=== PATIENT | male | born 1950 | race Caucasian/White ===

== ENCOUNTER 2017-01-04 11:41 | Observation (INO) | payer MEDICARE ==
[2017-01-04] VITALS (7 sets, daily range): BP systolic 128–194; BP diastolic 68–92; PULSE 59–69; RESP 18–20; TEMP 96.6–98.2; O2SAT 95–100
[~2017-01-04] VITALS: Ht 177.8 cm; Wt 121.7 kg
[~2017-01-04 11:41] MED LIST: ASPI81 PO; ATEN50 PO; CLOP75 PO; GABA300C3 PO; HYDR10SO PO; IBUP400T20 PO; ISOS60 PO; MAGN250T13 PO; NEUR300C PO; PRAV80 PO; PRED20 PO; PROT40TA PO; VITA100T15 PO
[2017-01-04] MEDS ORDERED: ASPIRIN 325 MG TAB PO ONE (12:15)
[2017-01-04] MEDS ORDERED: SODIUM CHLORIDE 0.9% FLUSH 10 ML FLUSH IVF PRN (12:15)
[2017-01-04] MEDS ORDERED: NITROGLYCERIN 0.4 MG SL 25 TABS/BTL SL ONE (12:15)
[2017-01-04 12:25] LABS: AUTOMATED NEUTROPHIL # 4.9 TH/MM3 (1.8-7.7); BASOPHIL % 0.6 % (0.0-2.0); EOSINOPHIL # 0.2 TH/MM3 (0-0.4); EOSINOPHIL % 3.2 % (0.0-4.0); HEMATOCRIT 42.5 % (39.0-51.0); HEMO FLAGS DIFF FINAL; LYMPHOCYTE # 1.4 TH/MM3 (1.0-4.8); MEAN CELL VOLUME 91.9 FL (80.0-100.0); MEAN CORPUSCULAR HEMOGLOBIN 31.6 PG (27.0-34.0); MEAN CORPUSCULAR HGB CONC 34.3 % (32.0-36.0); MONO % 8.3 % (0.0-8.0); NEUT % 67.9 % (16.0-70.0); PLATELET COUNT 214 TH/MM3 (150-450); RED BLOOD COUNT 4.63 MIL/MM3 (4.50-5.90); RED CELL DISTRIBUTION WIDTH 13.9 % (11.6-17.2); WHITE BLOOD COUNT 7.2 TH/MM3 (4.0-11.0)
[2017-01-04 12:35] LABS: APTT (PATIENT) 25.8 SEC (24.3-30.1); INTERNATIONAL NORMALIZED RATIO 0.9 RATIO; PROTHROMBIN TIME - PATIENT 10.1 SEC (9.8-11.6)
[2017-01-04 12:44] LABS: ANION GAP 5 MEQ/L (5-15); BICARBONATE 30.6 MEQ/L (21.0-32.0); BLOOD UREA NITROGEN 12 MG/DL (7-18); CHLORIDE 105 MEQ/L (98-107); GLOMERULAR FILTRATION RATE 93 ML/MIN (>89); MAGNESIUM 2.3 MG/DL (1.5-2.5); POTASSIUM 4.6 MEQ/L (3.5-5.1); SODIUM (NA) 141 MEQ/L (136-145)
--- NOTE | 2017-01-04 12:48 | PD ---
HPI Chief Complaint: Chest Pain Time Seen by Provider: 12:44 Travel History International Travel<30 days: No Contact w/Intl Traveler<30days: No Traveled to known affect area: No History of Present Illness HPI 66-year-old male that presents to the ED for evaluation of chest pain. Patient states that she's had chest pain on and off for the past 2-3 days. Per patient he has a history of angina as well as coronary artery disease having had a heart catheter by Dr. starkey just a year ago. Per patient she's had 4 stents in his life. Per patient the pain got worse yesterday and is progressively getting worse. Per patient nitroglycerin relieves it but he states that any movement of any kind makes the pain worse. He does have a history of high cholesterol and high blood pressure and all history of smoking. He takes aspirin. Per patient he was recently found to have a cyst that is infected on his back and he was given a get surgery for it and he stopped taking his Plavix for about a week. Per patient she's been taking his Plavix since Sunday with no issues. Patient states that he called Dr. starkey his radiology transporter recommended that he comes here. He denies any recent travel. No history of blood clots. No fevers chills or sweats. Pain comes and goes. Pain feels like a pressure on his left side and radiates to the left shoulder. No headache. Patient has been using nitroglycerin with relief but doesn't completely get rid of it. Pain per patient was 7 out of 10 when it gets bad right now is 2 out of 10. Patient is shortness of breath with the symptoms and diaphoretic. Patient did took an aspirin today. PFSH Past Medical History Arthritis: Yes Asthma: No Autoimmune Disease: No Blood Disorders: No Anxiety: No Depression: No Heart Rhythm Problems: No Cancer: No Cardiac Catheterization: Yes (X 17) Cardiovascular Problems: Yes (CAD/STENTS) High Cholesterol: Yes Chemotherapy: No Chest Pain: Yes Congestive Heart Failure: No COPD: Yes Cerebrovascular Accident: Yes Coronary Artery Disease: Yes Diabetes: No Diminished Hearing: No Endocrine: No GERD: Yes Glaucoma: No Genitourinary: No Headaches: No Hepatitis: No Hiatal Hernia: Yes Hypertension: Yes Immune Disorder: No Implanted Vascular Access Dvce: Yes Kidney Stones: No Musculoskeletal: No Neurologic: No Psychiatric: No Reproductive: No Respiratory: Yes (COPD) Migraines: No Myocardial Infarction: Yes (N-STEMI 1997) Radiation Therapy: No Renal Failure: No Seizures: No Sickle Cell Disease: No Sleep Apnea: No Thyroid Disease: No Ulcer: No Past Surgical History Abdominal Surgery: No AICD: No Body Medical Devices: 3 CORONARY STENTS; PLATE SCREWS NECK: 2-5 VERTBRA LUMBAR RODS:PIN LEFT SH Cardiac Surgery: Yes Coronary Artery Bypass Graft: No Coronary Stent: Yes (X 3 1997) Ear Surgery: No Endocrine Surgery: No Eye Surgery: No Genitourinary Surgery: No Gynecologic Surgery: No Joint Replacement: No Neurologic Surgery: Yes (LUMBAR & CERVICAL FUSIONS) Oral Surgery: Yes (T & A) Pacemaker: No Thoracic Surgery: Yes Family History Family Myocardial Infarction: Yes (father) Social History Alcohol Use: No Tobacco Use: No Substance Use: No Allergies-Medications (Allergen,Severity, Reaction): Coded Allergies: Contrast Media (Verified Allergy, Severe, Hives, 01/04/17) Gemfibrozil (Verified Allergy, Severe, 01/04/17) Simvastatin (Verified Allergy, Severe, 01/04/17) Uncoded Allergies: CRESTOR (Adverse Reaction, Severe, JOINT ACHE, 09/05/11) Reported Meds & Prescriptions Reported Meds & Active Scripts Active Reported Keflex (Cephalexin) 500 Mg Cap 500 Mg PO Q6H Nitrostat SL (Nitroglycerin) 0.4 Mg Subl 0.4 Mg SL DIRECTED PRN 1 tablet under the tongue as needed for chest pain. Repeat every 5 minutes for a total of 3 DOSES or call 911 if NO relief. Aspirin Adult Low Strength (Aspirin) 81 Mg Tabdr 81 Mg PO DAILY Advil (Ibuprofen) 200 Mg Cap 200 Mg PO BID Cymbalta DR (Duloxetine HCl) 30 Mg Capdr 30 Mg PO DAILY Lortab (Hydrocodone-Acetaminophen) 10-325 Mg Tab 1 Tab PO Q4-6H PRN Plavix (Clopidogrel Bisulfate) 75 Mg Tab 75 Mg PO DAILY Tenormin (Atenolol) 50 Mg Tab 50 Mg PO DAILY Isosorbide Mononitrate ER (Isosorbide Mononitrate) 30 Mg Mega 30 Mg PO DAILY Protonix (Pantoprazole Sodium) 40 Mg Tab 40 Mg PO DAILY Pravastatin 80 Mg Tab 80 Mg PO DAILY Neurontin (Gabapentin) 300 Mg Cap 300 Mg PO QID Review of Systems Except as stated in HPI: all other systems reviewed are Neg Physical Exam Narrative GENERAL: SKIN: Warm and dry. HEAD: Atraumatic. Normocephalic. EYES: Pupils equal and round. No scleral icterus. No injection or drainage. ENT: No nasal bleeding or discharge. Mucous membranes pink and moist. Tongue is midline. No uvula deviation. NECK: Trachea midline. No JVD. CARDIOVASCULAR: Regular rate and rhythm. No murmurs, S3, S4. Chest pain is not reproducible with touch. RESPIRATORY: No accessory muscle use. Clear to auscultation. Breath sounds equal bilaterally. GASTROINTESTINAL: Abdomen soft, non-tender, nondistended. Hepatic and splenic margins not palpable. MUSCULOSKELETAL: Extremities without clubbing, cyanosis, or edema. No obvious deformities. Full range of motion of the upper and lower extremities bilaterally. 2+ pulses bilaterally. NEUROLOGICAL: Awake and alert. No obvious cranial nerve deficits. Motor grossly within normal limits. Five out of 5 muscle strength in the arms and legs. Normal speech. PSYCHIATRIC: Appropriate mood and affect; insight and judgment normal. Data Data Last Documented VS Vital Signs Date Time Temp Pulse Resp B/P Pulse Ox O2 Delivery O2 Flow Rate FiO2 01/04/17 12:24 66 20 128/68 97 01/04/17 12:08 Nasal Cannula 2 01/04/17 11:42 98.2 Orders Electrocardiogram (01/04/17 ) Electrocardiogram (01/04/17 12:06) Basic Metabolic Panel (Bmp) (01/04/17 12:06) B-Type Natriuretic Peptide (01/04/17 12:06) Ckmb (Isoenzyme) Profile (01/04/17 12:06) Complete Blood Count With Diff (01/04/17 12:06) Magnesium (Mg) (01/04/17 12:06) Prothrombin Time / Inr (Pt) (01/04/17 12:06) Act Partial Throm Time (Ptt) (01/04/17 12:06) Troponin I (01/04/17 12:06) Chest, Single Ap (01/04/17 12:06) Ecg Monitoring (01/04/17 12:06) Bilateral Bp Monitoring (01/04/17 12:06) Iv Access Insert/Monitor (01/04/17 12:06) Oximetry (01/04/17 12:06) Oxygen Administration (01/04/17 12:06) Aspirin (Aspirin) (01/04/17 12:15) Sodium Chloride 0.9% Flush (Ns Flush) (01/04/17 12:15) Nitroglycerin Sl (Nitrostat Sl) (01/04/17 12:15) CKMB (01/04/17 12:10) CKMB% (01/04/17 12:10) Admit Order (Ed Use Only) (01/04/17 13:24) Labs Laboratory Tests Test 01/04/17 12:10 White Blood Count 7.2 TH/MM3 Red Blood Count 4.63 MIL/MM3 Hemoglobin 14.6 GM/DL Hematocrit 42.5 % Mean Corpuscular Volume 91.9 FL Mean Corpuscular Hemoglobin 31.6 PG Mean Corpuscular Hemoglobin 34.3 % Concent Red Cell Distribution Width 13.9 % Platelet Count 214 TH/MM3 Mean Platelet Volume 7.3 FL Neutrophils (%) (Auto) 67.9 % Lymphocytes (%) (Auto) 20.0 % Monocytes (%) (Auto) 8.3 % Eosinophils (%) (Auto) 3.2 % Basophils (%) (Auto) 0.6 % Neutrophils # (Auto) 4.9 TH/MM3 Lymphocytes # (Auto) 1.4 TH/MM3 Monocytes # (Auto) 0.6 TH/MM3 Eosinophils # (Auto) 0.2 TH/MM3 Basophils # (Auto) 0.0 TH/MM3 CBC Comment DIFF FINAL Differential Comment Prothrombin Time 10.1 SEC Prothromb Time International 0.9 RATIO Ratio Activated Partial 25.8 SEC Thromboplast Time Sodium Level 141 MEQ/L Potassium Level 4.6 MEQ/L Chloride Level 105 MEQ/L Carbon Dioxide Level 30.6 MEQ/L Anion Gap 5 MEQ/L Blood Urea Nitrogen 12 MG/DL Creatinine 0.83 MG/DL Estimat Glomerular Filtration 93 ML/MIN Rate Random Glucose 94 MG/DL Calcium Level 9.0 MG/DL Magnesium Level 2.3 MG/DL Total Creatine Kinase 145 U/L Creatine Kinase MB 2.3 NG/ML Troponin I LESS THAN 0.02 NG/ML B-Type Natriuretic Peptide 41 PG/ML MDM Medical Decision Making Medical Screen Exam Complete: Yes Emergency Medical Condition: Yes Medical Record Reviewed: Yes Interpretation(s) CBC & BMP Diagram 4/20/17 12:10 troponin and CKMB negative EKG showed sinus rhythm with occasional supraventricular PVCs otherwise unremarkable. No sign of acute ischemia. Read by me and attending. Differential Diagnosis Chest pain versus coronary disease versus and STEMI versus STEMI versus CHF versus a typical chest pain Narrative Course 66-year-old male that presents to the ED for evaluation of chest pain. Patient was properly examined and was found to have signs and symptoms concerning for cardiac chest pain. At this time labs and imaging ordered. Labs and imaging showed negative for acute at this time. Patient does appear to have signs and symptoms concerning for cardiac disease. A call will be placed to Dr. starkey her radiology transporter to see what he wants done. I spoke with Dr. Meyers over the phone who review of his records including the heart That he had done in 2016 and she recommends admission to the chest pain center. Patient was told this as well as family and they're in agreement with plan to admission for the chest pain center. Patient was admitted to the chest pain center. Procedures Procedure Narrative After the risks and benefits were discussed the following procedure was performed: INCISION AND DRAINAGE OF ABSCESS: The area was prepped and was sterilely draped. A subcutaneous wheal of 1 % Xylocaine with a total number 5 mL was used to anesthetize the area. The area was properly anesthetized. A number 11 scalpel was used to make a 1 -cm incision across the area of the abscess. Cultures were obtained. The abscess was drained an irrigated with normal saline. Quarter inch iodoform packing was placed in the wound. Sterile dressing applied. Patient advised to have packing removed in two days. Diagnosis Primary Impression: Chest pain Qualified Code: R07.9 - Chest pain, unspecified type Admitting Information Admitting Physician Requests: Jose Justice Jan 04, 2017 12:48
--- NOTE | 2017-01-04 12:49 | RADRPT ---
EXAM DATE/TIME: 01/04/2017 12:25 [facility] COMPARISON: CHEST SINGLE AP, August 08, 2015, 12:22. INDICATIONS : Chest pain. MEDICAL HISTORY : Myocardial infarction. SURGICAL HISTORY : Coronary artery stent. ENCOUNTER: Initial ACUITY: 1 day PAIN SCORE: 6/10 LOCATION: Left upper chest FINDINGS: Scattered bibasilar discoid atelectasis is noted. The pulmonary vascular pattern is normal. The hea rt is normal. The lungs are otherwise clear. CONCLUSION: Scattered bibasilar discoid atelectasis. Spencer Nur MD on January 04, 2017 at 12:33 Board Certified Radiologist. This report was verified electronically.
[2017-01-04] MEDS ORDERED: PLAV75TA29 PO (12:59)
[2017-01-04] MEDS ORDERED: CEPH-460 PO (12:59)
[2017-01-04] MEDS ORDERED: PRAV80TA2 PO (12:59)
[2017-01-04] MEDS ORDERED: ASPI1TAB91 PO (12:59)
[2017-01-04] MEDS ORDERED: NEUR300C PO (12:59)
[2017-01-04] MEDS ORDERED: PROT40TA PO (12:59)
[2017-01-04] MEDS ORDERED: ATEN1TAB74 PO (12:59)
[2017-01-04] MEDS ORDERED: ADVI200C5 PO (12:59)
[2017-01-04] MEDS ORDERED: HYDR-3535 PO (12:59)
[2017-01-04] MEDS ORDERED: ISOS30TA3 PO (12:59)
[2017-01-04] MEDS ORDERED: CYMB30CA PO (12:59)
[2017-01-04] MEDS ORDERED: NITR0.4S SL (12:59)
[2017-01-04 13:03] LABS: CREATINE KINASE 145 U/L (39-308)
[2017-01-04 13:16] LABS: CKMB 2.3 NG/ML (0.5-3.6)
[2017-01-04] MEDS ORDERED: SODIUM CHLORIDE 0.9% FLUSH 5 ML FLUSH IVF PRN (14:30)
[2017-01-04] MEDS ORDERED: cloNIDine HCL 0.1 MG TAB PO PRN (14:30)
[2017-01-04] MEDS ORDERED: ONDANSETRON HCL 4 MG/2 ML VIAL IV PRN (14:30)
[2017-01-04] MEDS ORDERED: ALPRAZolam 0.25 MG TAB PO PRN (14:30)
[2017-01-04] MEDS ORDERED: ACETAMINOPHEN 500 MG CPLT PO PRN (14:30)
[2017-01-04] MEDS ORDERED: RESP: ALBUTEROL 2.5 MG/IPRATROPIUM 0.5 MG NEB (PRN) INH (14:30)
[2017-01-04] MEDS: ACETAMINOPHEN/HYDROcodone 325 MG/7.5 MG TAB PO PRN ×2 (14:36→22:19)
[2017-01-04] MEDS: PANTOPRAZOLE SOD 40 MG DELAYED RELEASE TAB PO SCH (14:36)
--- NOTE | 2017-01-04 15:06 | HHI.HP ---
[facility] Primary Care Physician Kevin Johns MD, PhD Chief Complaint Chest pain History of Present Illness This is a 66-year-old male that presents to the ED via private vehicle to evaluate chest discomfort. Patient does have history of CAD. He states that 4 stents in the past most recently being 2012. He follows Dr. starkey of cardiology. Last stress test was nonischemic in November 2014. His last heart catheterization was in 2015. Mid RCA had mild in-stent restenosis. Proximal ramus had 30% stenosis. He states is chronic back pain is not unusual to get a discomfort with that as well. However he states the last 2 weeks he had a constant discomfort in his chest that he describes as a pressure. It is worsened with walking wheezing when he stops walking. It also is eased up after takes a nitroglycerin but still present. The discomfort has intensified over the last 2 days. He has been a time short of breath. No nausea or diaphoresis. Denies recent illness. Denies fevers or chills. Voices compliance with his medications. He had apparently stopped taking Plavix as he is about to have a sebaceous cyst excised. He was placed antibiotics as the physician believes it was infected. The patient started taken Plavix again about a week ago. His states that it has been draining the last couple days. Review of Systems General: Patient denies fevers, chills recent, and recent travel HEENT: Patient denies headache, sore throat, difficulty swallowing. Cardiovascular: Has the chest discomfort as mentioned above. Denies sensation of heart beating rapidly or irregularly. No syncope. Denies diaphoresis. Respiratory: He has had occasional shortness of breath. Denies inspirational chest discomfort. Denies coughing wheezing or hemoptysis. GI: Patient denies nausea, vomiting, diarrhea, abdominal pain, bloody stools. Musculoskeletal: Patient denies joint pain or edema. Denies calf pain or edema. Neurovascular: Patient denies numbness, tingling, weakness in extremities. Denies headache. Endocrine: Denies polyuria and polydipsia. Hematologic: Denies easy bruising. Skin: States that he had a cyst on his left back that is reddened and draining. He was scheduled to have the cyst excised with Dr. hernandez and is currently on antibiotics for this. Past Family Social History Allergies: Coded Allergies: Contrast Media (Verified Allergy, Severe, Hives, 01/04/17) Gemfibrozil (Verified Allergy, Severe, 01/04/17) Simvastatin (Verified Allergy, Severe, 01/04/17) Uncoded Allergies: CRESTOR (Adverse Reaction, Severe, JOINT ACHE, 09/05/11) Past Medical History * Chest pain: Patient will continue to have serial cardiac enzymes and EKGs for ruling out purposes. The ER staff spoke with the patient's materials recycler Dr. Starkey who requested that the patient be admitted to the chest pain center. He has been seen by Dr. Dias of cardiology in the chest pain center. If he rules out he will undergo a Lexiscan in the morning. He was discharged if stress test is nonischemic. He will be admitted with a consult to Dr. starkey if the stress test were to be ischemic. Nitrol ointment will be applied to his chest. * History of CAD with stenting: This will be reassessed with stress testing. We will increase his atenolol to twice a day. * Hypertension: Continue current medications. We will increase his atenolol to twice a day. * Hyperlipidemia: Continue current medications. * GERD: Continue current medications. Patient is agreeable to this plan. He is stable at this time. Reported Medications Reported Meds & Active Scripts Active Reported Keflex (Cephalexin) 500 Mg Cap 500 Mg PO Q6H Nitrostat SL (Nitroglycerin) 0.4 Mg Subl 0.4 Mg SL DIRECTED PRN 1 tablet under the tongue as needed for chest pain. Repeat every 5 minutes for a total of 3 DOSES or call 911 if NO relief. Aspirin Adult Low Strength (Aspirin) 81 Mg Tabdr 81 Mg PO DAILY Advil (Ibuprofen) 200 Mg Cap 200 Mg PO BID Cymbalta DR (Duloxetine HCl) 30 Mg Capdr 30 Mg PO DAILY Lortab (Hydrocodone-Acetaminophen) 10-325 Mg Tab 1 Tab PO Q4-6H PRN Plavix (Clopidogrel Bisulfate) 75 Mg Tab 75 Mg PO DAILY Tenormin (Atenolol) 50 Mg Tab 50 Mg PO DAILY Isosorbide Mononitrate ER (Isosorbide Mononitrate) 30 Mg Mega 30 Mg PO DAILY Protonix (Pantoprazole Sodium) 40 Mg Tab 40 Mg PO DAILY Pravastatin 80 Mg Tab 80 Mg PO DAILY Neurontin (Gabapentin) 300 Mg Cap 300 Mg PO QID Active Ordered Medications Current Medications Medications (Trade) Dose Ordered Sig/Jos Route Start Time Stop Time Status Last Admin (NS Flush) 2 ml UNSCH PRN IVF 01/04/17 14:30 (NS Flush) 2 ml BID IVF 01/04/17 21:00 (Tylenol) 500 mg Q4H PRN PO 01/04/17 14:30 ([place] 7.5-325 Mg) 1 tab Q4H PRN PO 01/04/17 14:30 01/04/17 14:36 (Zofran Inj) 4 mg Q6H PRN IV 01/04/17 14:30 (Protonix) 40 mg DAILY PO 01/04/17 14:30 01/04/17 14:36 (Aspirin) 325 mg DAILY PO 01/05/17 09:00 (Xanax) 0.25 mg Q8H PRN PO 01/04/17 14:30 (Tenormin) 50 mg DAILY PO 01/05/17 09:00 (Keflex) 500 mg Q6HR PO 01/04/17 18:00 (Plavix) 75 mg DAILY PO 01/05/17 09:00 (Cymbalta Dr) 30 mg DAILY PO 01/05/17 09:00 (Neurontin) 300 mg QID PO 01/04/17 18:00 (Imdur) 30 mg DAILY PO 01/05/17 09:00 (Pravachol) 80 mg DAILY PO 01/05/17 09:00 (Catapres) 0.1 mg Q4H PRN PO 01/04/17 14:30 Physical Exam Vital Signs Vital Signs Date Time Temp Pulse Resp B/P Pulse Ox O2 Delivery O2 Flow Rate FiO2 01/04/17 14:08 59 20 155/75 100 Nasal Cannula 2 01/04/17 12:24 66 20 128/68 97 01/04/17 12:08 97 01/04/17 12:08 97 Nasal Cannula 2 01/04/17 11:42 98.2 69 18 194/92 98 Laboratory Laboratory Tests Test 01/04/17 12:10 White Blood Count 7.2 Red Blood Count 4.63 Hemoglobin 14.6 Hematocrit 42.5 Mean Corpuscular Volume 91.9 Mean Corpuscular Hemoglobin 31.6 Mean Corpuscular Hemoglobin 34.3 Concent Red Cell Distribution Width 13.9 Platelet Count 214 Mean Platelet Volume 7.3 Neutrophils (%) (Auto) 67.9 Lymphocytes (%) (Auto) 20.0 Monocytes (%) (Auto) 8.3 Eosinophils (%) (Auto) 3.2 Basophils (%) (Auto) 0.6 Neutrophils # (Auto) 4.9 Lymphocytes # (Auto) 1.4 Monocytes # (Auto) 0.6 Eosinophils # (Auto) 0.2 Basophils # (Auto) 0.0 CBC Comment DIFF FINAL Differential Comment Prothrombin Time 10.1 Prothromb Time International 0.9 Ratio Activated Partial 25.8 Thromboplast Time Sodium Level 141 Potassium Level 4.6 Chloride Level 105 Carbon Dioxide Level 30.6 Anion Gap 5 Blood Urea Nitrogen 12 Creatinine 0.83 Estimat Glomerular Filtration 93 Rate Random Glucose 94 Calcium Level 9.0 Magnesium Level 2.3 Total Creatine Kinase 145 Creatine Kinase MB 2.3 Troponin I LESS THAN 0.02 B-Type Natriuretic Peptide 41 Result Diagram: 01/04/17 1210 01/04/17 1210 Tobi Ellis Jan 04, 2017 15:06
[2017-01-04 15:49] LABS: CREATINE KINASE 128 U/L (39-308)
[2017-01-04 16:01] LABS: CKMB 2.1 NG/ML (0.5-3.6)
[2017-01-04] MEDS: NITROGLYCERIN 2% OINT 1 GM PACKET TOPICAL SCH ×2 (17:48→18:11)
[2017-01-04] MEDS: GABAPENTIN 300 MG CAP PO SCH ×2 (18:11→22:17)
[2017-01-04] MEDS: CEPHALEXIN MONOHYDRATE 500 MG CAP PO SCH (18:12)
[2017-01-04 18:34] LABS: CREATINE KINASE 115 U/L (39-308)
[2017-01-04 18:48] LABS: CKMB 2.2 NG/ML (0.5-3.6)
[2017-01-04] MEDS: SODIUM CHLORIDE 0.9% FLUSH 5 ML FLUSH IVF SCH (21:00)
[2017-01-04] MEDS: ATENOLOL 50 MG TAB PO SCH (22:18)
[2017-01-05] VITALS (9 sets, daily range): BP systolic 114–143; BP diastolic 58–70; PULSE 53–69; RESP 20; TEMP 96.3–98.2; O2SAT 94–96
[2017-01-05] MEDS: CEPHALEXIN MONOHYDRATE 500 MG CAP PO SCH ×3 (01:09→11:46)
[2017-01-05] MEDS: NITROGLYCERIN 2% OINT 1 GM PACKET TOPICAL SCH ×3 (05:00→11:47)
[2017-01-05] MEDS: PANTOPRAZOLE SOD 40 MG DELAYED RELEASE TAB PO SCH (07:53)
[2017-01-05] MEDS: GABAPENTIN 300 MG CAP PO SCH ×2 (07:53→12:19)
[2017-01-05] MEDS: SODIUM CHLORIDE 0.9% FLUSH 5 ML FLUSH IVF SCH (07:58)
[2017-01-05] MEDS ORDERED: ATENOLOL 50 MG TAB PO SCH (09:00)
[2017-01-05] MEDS: ATENOLOL 50 MG TAB PO SCH (09:00)
[2017-01-05] MEDS ORDERED: PRAVASTATIN SOD 80 MG TAB PO SCH (09:00)
[2017-01-05] MEDS ORDERED: ASPIRIN 325 MG TAB PO SCH (09:00)
[2017-01-05] MEDS ORDERED: ISOSORBIDE MONONITRATE 30 MG TAB PO SCH (09:00)
[2017-01-05] MEDS ORDERED: CLOPIDOGREL 75 MG TAB PO SCH (09:00)
[2017-01-05] MEDS ORDERED: DULoxetine HCl DR 30 MG CAP PO SCH (09:00)
[2017-01-05] MEDS: ACETAMINOPHEN/HYDROcodone 325 MG/7.5 MG TAB PO PRN (09:09)
[2017-01-05] MEDS ORDERED: REGADENOSON INJ 0.4 MG/5 ML SYR ONE (10:37)
--- NOTE | 2017-01-05 12:14 | TR ---
Date Performed: 01/05/2017 Time Performed: 10:41:32 DOCTOR: Roe Dias DRUG LIST: CLINICAL HISTORY: ANGINA REASON FOR TEST: Angina REASON FOR ENDING: OBSERVATION: CONCLUSION: Lexiscan stress test was performed under standard four minute protocol. Radionuclid e was injected one minute prior to ending the test. No electrocardiographic abormalities were present to suggest ischemia. Nuclear imaging and interpretation are pending. COMMENTS:
--- NOTE | 2017-01-05 12:53 | RADRPT ---
EXAM DATE/TIME: 01/05/2017 10:05 [facility] COMPARISON: MYOCARDIAL PERF PHARM SPECT, GATED W/EF, November 23, 2014, 12:49. INDICATIONS : Substernal chest pain with dyspnea. Angina. Coronary artery disease. DOSE: 35.0 mCi Tc99m Myoview at stress. 11.0 mCi Tc99m Myoview at rest. 0.4 mg Lexiscan STRESS SYMPTOMS: Shortness of breath. EJECTION FRACTION: 50% MEDICAL HISTORY : Hypertension. Chronic obstructive pulmonary disease. Gastroesophageal reflux disease. Myocardial infa rction. SURGICAL HISTORY : Coronary artery stent. Tonsillectomy. ENCOUNTER: Initial ACUITY: 1 day PAIN SCALE: 6/10 LOCATION: Substernal chest TECHNIQUE: The patient underwent pharmacologic stress with infusion of prescribed dose. Continuous ECG tracing was monitored during stress. Gated SPECT imaging was performed after stress and conventional SPECT i maging was performed at rest. The examination was performed on a SPECT/CT scanner, both attenuation and non-corrected datasets were reviewed. FINDINGS: DISTRIBUTION: The maximum perfused segment at stress is in the anterolateral wall. PERFUSION STUDY: The pattern of perfusion at stress demonstrates fixed defects in posterior basal and inferior wall an d low anteroapical wall most of which is due to attenuation artifact without any significant ischemia . GATED STUDY: There is intact wall motion and thickening without hypokinetic or dyskinetic segments. CONCLUSION: No appreciable ischemia not significantly changed. RISK CATEGORY: Low (<1% Annual Mortality Rate) Carmella Lynn MD on January 05, 2017 at 12:49 Board Certified Radiologist. This report was verified electronically.
--- NOTE | 2017-01-05 13:11 | EKG ---
Date Performed: 01/04/2017 Time Performed: 18:06:01 PTAGE: 66 years EKG: SINUS BRADYCARDIA BORDERLINE ECG PREVIOUS TRACING : 01/04/2017 11.51 Since previous tracing, no significant change noted DOCTOR: Roe Dias Interpretating Date/Time 01/05/2017 13:09:25
--- NOTE | 2017-01-05 13:14 | EKG ---
Date Performed: 01/04/2017 Time Performed: 11:51:36 PTAGE: 66 years EKG: Sinus rhythm WITH OCCASIONAL SUPRAVENTRICULAR PREMATURE COMPLEXES ABNORMAL ECG PREVIOUS TRACING : 09/02/2015 04.19 Since previous tracing, no significant change noted DOCTOR: Roe Dias Interpretating Date/Time 01/05/2017 13:12:46
--- NOTE | 2017-01-05 13:26 | HHI.DCPOC ---
Discharge Care Plan Diagnosis: (1) Atypical chest pain (2) Hyperlipidemia (3) Hypertension (4) Musculoskeletal chest pain (5) Hx of coronary artery disease Goals to Promote Your Health * To prevent worsening of your condition and complications * To maintain your health at the optimal level Directions to Meet Your Goals Take your medications as prescribed Follow your dietary instruction Follow activity as directed Keep your appointments as scheduled Take your immunizations and boosters as scheduled If your symptoms worsen call your PCP, if no PCP go to Urgent Care Center or Emergency Room Smoking is Dangerous to Your Health. Avoid second hand smoke Call the 24-hour hour crisis hotline for domestic abuse at [facility] Jan 05, 2017 13:26
[2017-01-05] MEDS ORDERED: ATEN50TA PO (13:30)
== END 2017-01-05 18:37 | disposition home or self-care (01) ==
LOC: NEPC 11:41 → NEDA 13:25 → NEPHCDU 15:31
DX: R07.9 Chest pain, unspecified (principal); I25.10 Atherosclerotic heart disease of native coronary artery without angina pectoris; I20.9 Angina pectoris, unspecified; E78.00 Pure hypercholesterolemia, unspecified; M19.90 Unspecified osteoarthritis, unspecified site; J44.9 Chronic obstructive pulmonary disease, unspecified; Z86.73 Personal history of transient ischemic attack (TIA), and cerebral infarction without residual deficits; K21.9 Gastro-esophageal reflux disease without esophagitis; K44.9 Diaphragmatic hernia without obstruction or gangrene; I10 Essential (primary) hypertension; I25.2 Old myocardial infarction; Z79.899 Other long term (current) drug therapy; T82.855A Stenosis of coronary artery stent, initial encounter; G89.29 Other chronic pain; M54.9 Dorsalgia, unspecified; R94.31 Abnormal electrocardiogram [ECG] [EKG]; Z87.891 Personal history of nicotine dependence; Z79.82 Long term (current) use of aspirin
CPT/HCPCS: 10061; 71010; 78452; 80048; 82550; 82552; 83735; 83880; 84484; 85025; 85610; 85730; 87070; 93005; 93017; 99285; A9502; G0378; J2785

== ENCOUNTER 2017-01-08 10:49 | Day surgery (SDC) | payer MEDICARE ==
[~2017-01-08] VITALS: Ht 177.8 cm; Wt 122.4 kg
[~2017-01-08 10:49] MED LIST changes: +ADVI200C5 PO; +ASPI1TAB91 PO; -ASPI81 PO; -ATEN50 PO; +ATEN50TA PO; +CEPH-460 PO; -CLOP75 PO; +CYMB30CA PO; -GABA300C3 PO; +HYDR-3535 PO; -HYDR10SO PO; -IBUP400T20 PO; +ISOS30TA3 PO; -ISOS60 PO; -MAGN250T13 PO; +NITR0.4S SL; +PLAV75TA29 PO; -PRAV80 PO; +PRAV80TA2 PO; -PRED20 PO; -VITA100T15 PO
[2017-01-08] MEDS ORDERED: MAGN250T11 PO (11:25)
[2017-01-08] MEDS ORDERED: NAPR220T95 PO (11:25)
[2017-01-08] MEDS ORDERED: VITA100021 SL (11:25)
[2017-01-08] MEDS ORDERED: ISOS60TA PO (11:25)
[2017-01-08] MEDS ORDERED: DIAZ10TA PO (11:25)
[2017-01-08 11:32] VITALS: BP 179/81; PULSE 49; RESP 18; TEMP 98.3; O2SAT 97
[2017-01-08] MEDS ORDERED: methylPREDNISolone SOD SUCC 125 MG/2 ML VIAL ONE (12:02)
[2017-01-08] MEDS ORDERED: diphenhydrAMINE HCL 50 MG/ML VIAL ONE (12:02)
[2017-01-08] MEDS ORDERED: methylPREDNISolone SOD SUCC 125 MG/2 ML VIAL IV PUSH ONE (12:15)
[2017-01-08] MEDS ORDERED: NS 1000P @30 MLS/HR (KVO) IV SCH (12:15)
[2017-01-08] MEDS ORDERED: diphenhydrAMINE HCL 50 MG/ML VIAL IV PUSH ONE (12:15)
[2017-01-08] MEDS ORDERED: HEPARIN-NS/PF INJ 500 ML ONE (12:49)
[2017-01-08] MEDS ORDERED: MIDAZOLAM HCL 2 MG/2 ML VIAL ONE (13:00)
[2017-01-08] MEDS ORDERED: HEPARIN SODIUM - IV 10,000 UNITS/10 ML VIAL ONE (13:00)
[2017-01-08] MEDS ORDERED: IOHEXOL 350 MG/ML 100 ML BTL (for Cath Lab) OTHER ONE (13:45)
[2017-01-08] MEDS ORDERED: MISC INFORMATION XX ONE (13:45)
[2017-01-08] MEDS ORDERED: BACITRACIN OINT 0.9 GM PKT TOP ONE (14:00)
--- NOTE | 2017-01-08 15:36 | MA ---
cc: CARMEN VALENCIA DATE: 01/08/2017 HISTORY This is a 66-year-old gentleman who has now recurrent episodes of chest pain. He had a negative stress test last week but his symptoms became more progressive and similar to his prior angina. He was seen in the office today and after a lengthy discussion we decided to move forward with cardiac catheterization to rule out obstructive coronary disease. PROCEDURE PERFORMED 1. Fluoroscopy with interpretation. 2. Left heart catheterization. 3. Coronary angiography METHOD The risks, benefits and alternatives were discussed with the patient. The patient understood and consented to the procedure. The patient was brought into the catheterization lab and was placed on the catheterization table. The right wrist was prepped and draped in a sterile fashion. The right wrist was anesthetized with 2% lidocaine. The right radial artery was cannulated and a 6-Emirati, 7 cm sheath was placed without difficulty. LEFT HEART CATHETERIZATION A 6-Emirati JR5 catheter was advanced across the aortic valve without difficulty. Intraventricular hemodynamics measured 120/10 mmHg. CORONARY ANGIOGRAPHY 1. The left main coronary is angiographically normal. 2. The left anterior descending coronary has minor luminal irregularities in the midsegment. Otherwise the vessel is widely. The diagonal branch is widely patent. 3. The left circumflex does have some minor luminal irregularities in the obtuse marginal branch. In the proximal ramus branch there is a 30% eccentric stenosis. 4. The right coronary has a stent present in the midsegment. At the distal stent margin there is about a 30% tubular stenosis. The posterior descending branch is widely patent. CONCLUSIONS 1. Mild nonobstructive coronary disease with widely patent right coronary stent. 2. Normal left-sided filling pressures. PLAN The patient has had recurrent resting chest pain symptoms which should have been evident with high-grade stenosis if there was underlying angina. He is on amlodipine and nitrates so I do not suspect coronary vasospasm, although it is still a possibility. I would consider non-cardiac workup including possible EGD and/or workup for back pain with radiation to his chest. A right radial HemoBand applied. Anticipate discharge today. MD ETHAN Davenport/MARTINA /1:54 PM /3:26 PM
== END 2017-01-08 17:15 | disposition home or self-care (01) ==
LOC: HDOC 10:49 → HDIC 10:50 → HDOC 17:15
PROVIDERS: ATTEND Internal Medicine
DX: I25.10 Atherosclerotic heart disease of native coronary artery without angina pectoris (principal); I10 Essential (primary) hypertension; J44.9 Chronic obstructive pulmonary disease, unspecified; Z95.5 Presence of coronary angioplasty implant and graft
CPT/HCPCS: 86850; 86900; 86901; 93454; C1769; C1893; J1200; J1644; J2250; J2930; J3010; Q9967

== ENCOUNTER 2017-10-24 15:26 | Observation (INO) | payer MEDICARE ==
[~2017-10-24] VITALS: Ht 177.8 cm; Wt 128.7 kg
[2017-10-24] VITALS (9 sets, daily range): BP systolic 113–136; BP diastolic 67–78; PULSE 76–95; RESP 16–20; TEMP 97.5–98.5; O2SAT 90–96
[~2017-10-24 15:26] MED LIST changes: -ADVI200C5 PO; -ASPI1TAB91 PO; +ASPI81TA16 PO; -CYMB30CA PO; +DIAZ10TA PO; -ISOS30TA3 PO; +ISOS60TA PO; +MAGN250T11 PO; +NAPR220T95 PO; +VITA100021 SL
[2017-10-24] MEDS ORDERED: TRIMTERENE PO (16:36)
[2017-10-24] MEDS ORDERED: AMLO5TAB2 PO (16:36)
[2017-10-24] MEDS ORDERED: EZET1TAB8 PO (16:36)
[2017-10-24] MEDS: RESP: ALBUTEROL 2.5 MG/IPRATROPIUM 0.5 MG NEB (SCH) INH ×2 (16:41→20:00)
[2017-10-24] MEDS ORDERED: SODIUM CHLORIDE 0.9% FLUSH 10 ML FLUSH IVF PRN (16:45)
[2017-10-24] MEDS ORDERED: methylPREDNISolone SOD SUCC 125 MG/2 ML VIAL IV PUSH ONE (16:45)
--- NOTE | 2017-10-24 16:52 | PD ---
HPI Chief Complaint: Cold / Flu Symptoms Time Seen by Provider: 16:20 Travel History International Travel<30 days: No Contact w/Intl Traveler<30days: No Traveled to known affect area: No History of Present Illness HPI 67 y/o male presents with cough and congestion over the past couple weeks. He states he went to his doctor and was placed on prednisone and Augmentin but when he was not getting better on the fifth they placed him on a Z-Nik and he had already completed all of the steroids. He states he is not feeling better so he came here. He states he had a chest x-ray that showed something yesterday but is not sure what. He states his workup was through [facility]. He states he feels worse when he moves around. He denies other modifying factors. He denies any other specific concurrent complaints. Duration is 2 weeks. Quality is cough. Severity is frequent. His last breathing treatment was yesterday at 1 PM. PFSH Past Medical History Arthritis: Yes Asthma: No Autoimmune Disease: No Blood Disorders: No Anxiety: No Depression: No Heart Rhythm Problems: No Cancer: No Cardiac Catheterization: Yes (patient states "I've had 22 heart caths") Cardiovascular Problems: Yes (CAD/STENTS/[place] in 1997) High Cholesterol: Yes Chemotherapy: No Chest Pain: Yes Congestive Heart Failure: No COPD: Yes Cerebrovascular Accident: Yes ([place]) Coronary Artery Disease: Yes Diabetes: No Diminished Hearing: No Endocrine: No GERD: Yes Glaucoma: No Genitourinary: No Headaches: No Hepatitis: No Hiatal Hernia: Yes Hypertension: Yes Immune Disorder: No Implanted Vascular Access Dvce: Yes Kidney Stones: No Musculoskeletal: No Neurologic: No Psychiatric: No Reproductive: No Respiratory: Yes (COPD) Migraines: No Myocardial Infarction: Yes (N-STEMI 1997) Radiation Therapy: No Renal Failure: No Seizures: No Sickle Cell Disease: No Sleep Apnea: No Thyroid Disease: No Ulcer: No Tetanus Vaccination: < 5 Years Influenza Vaccination: Yes Past Surgical History Abdominal Surgery: No AICD: No Body Medical Devices: 3 CORONARY STENTS; PLATE SCREWS NECK: 2-5 VERTBRA LUMBAR RODS:PIN LEFT SH Cardiac Surgery: Yes Coronary Artery Bypass Graft: No Coronary Stent: Yes (X 3 1997) Ear Surgery: No Endocrine Surgery: No Eye Surgery: No Genitourinary Surgery: No Gynecologic Surgery: No Joint Replacement: No Neurologic Surgery: Yes (LUMBAR & CERVICAL FUSIONS) Oral Surgery: Yes (T & A) Pacemaker: No Thoracic Surgery: Yes Family History Family Myocardial Infarction: Yes (father had [place] ) Social History Alcohol Use: No Tobacco Use: No Substance Use: No Allergies-Medications (Allergen,Severity, Reaction): Coded Allergies: diatrizoate meglumine (Unverified Allergy, Severe, Hives, 10/24/17) gadobenic acid (Unverified Allergy, Severe, Hives, 10/24/17) gadodiamide (Unverified Allergy, Severe, Hives, 10/24/17) gadoteridol (Unverified Allergy, Severe, Hives, 10/24/17) gemfibrozil (Unverified Allergy, Severe, 10/24/17) iodixanol (Unverified Allergy, Severe, Hives, 10/24/17) iohexol (Unverified Allergy, Severe, Hives, 10/24/17) simvastatin (Unverified Allergy, Severe, 10/24/17) Uncoded Allergies: CRESTOR (Adverse Reaction, Severe, JOINT ACHE, 09/05/11) Reported Meds & Prescriptions Reported Meds & Active Scripts Active Reported [Trimterene] 37.5 Mg PO DAILY Ezetimibe 10 Mg Tab 10 Mg PO HS Amlodipine (Amlodipine Besylate) 5 Mg Tab 5 Mg PO DAILY Vitamin B-12 (Cyanocobalamin) 1,000 Mcg Subl 1,000 Mcg SL DAILY Magnesium Oxide 250 Mg Tab 250 Mg PO BID Nitrostat SL (Nitroglycerin) 0.4 Mg Subl 0.4 Mg SL DIRECTED PRN 1 tablet under the tongue as needed for chest pain. Repeat every 5 minutes for a total of 3 DOSES or call 911 if NO relief. Aspirin Adult Low Strength (Aspirin) 81 Mg Tabdr 81 Mg PO DAILY Plavix (Clopidogrel Bisulfate) 75 Mg Tab 75 Mg PO DAILY Protonix (Pantoprazole Sodium) 40 Mg Tab 40 Mg PO DAILY Neurontin (Gabapentin) 300 Mg Cap 300 Mg PO QID Review of Systems Except as stated in HPI: all other systems reviewed are Neg Physical Exam Narrative GENERAL: 67 y/o male with frequent cough SKIN: Focused skin assessment warm/dry. HEAD: Atraumatic. Normocephalic. EYES: Pupils equal and round. No scleral icterus. No injection or drainage. ENT: No nasal bleeding or discharge. Mucous membranes pink and moist. Posterior oropharynx without exudate or erythema, bilateral TMs clear NECK: Trachea midline. No JVD. No meningeal signs CARDIOVASCULAR: Regular rate and rhythm. No murmur appreciated. RESPIRATORY: No accessory muscle use. Decreased breath sounds bilaterally. GASTROINTESTINAL: Abdomen soft, non-tender, nondistended. MUSCULOSKELETAL: No obvious deformities. No clubbing. No cyanosis. No edema. NEUROLOGICAL: Awake and alert. No obvious cranial nerve deficits. Motor grossly within normal limits. Normal speech. PSYCHIATRIC: Appropriate mood and affect; insight and judgment normal. Data Data Last Documented VS Vital Signs Date Time Temp Pulse Resp B/P (MAP) Pulse Ox O2 Delivery O2 Flow Rate FiO2 10/24/17 18:23 98.5 90 20 113/76 (88) 95 Room Air Orders Orders Chest, Pa & Lat (10/24/17 ) Influenzae A/B Antigen (10/24/17 16:22) Complete Blood Count With Diff (10/24/17 16:32) Comprehensive Metabolic Panel (10/24/17 16:32) B-Type Natriuretic Peptide (10/24/17 16:32) Act Partial Throm Time (Ptt) (10/24/17 16:32) Prothrombin Time / Inr (Pt) (10/24/17 16:32) Magnesium (Mg) (10/24/17 16:32) Ckmb (Isoenzyme) Profile (10/24/17 16:32) Troponin I (10/24/17 16:32) Blood Culture (10/24/17 16:32) Iv Access Insert/Monitor (10/24/17 16:32) Electrocardiogram (10/24/17 16:32) Ecg Monitoring (10/24/17 16:32) Oximetry (10/24/17 16:32) Sodium Chloride 0.9% Flush (Ns Flush) (10/24/17 16:45) Methylprednisolone So Succ Inj (Solumedr (10/24/17 16:45) Albuterol-Ipratropium Neb (Duoneb Neb) (10/24/17 16:45) Lactic Acid (10/24/17 16:32) Albuterol-Ipratropium Neb (Duoneb Neb) (10/24/17 19:00) Admit Order (Ed Use Only) (10/24/17 19:09) Labs Laboratory Tests Test 10/24/17 17:35 White Blood Count 10.8 TH/MM3 Red Blood Count 4.82 MIL/MM3 Hemoglobin 14.7 GM/DL Hematocrit 44.4 % Mean Corpuscular Volume 92.1 FL Mean Corpuscular Hemoglobin 30.6 PG Mean Corpuscular Hemoglobin Concent 33.2 % Red Cell Distribution Width 13.3 % Platelet Count 310 TH/MM3 Mean Platelet Volume 7.7 FL Neutrophils (%) (Auto) 68.3 % Lymphocytes (%) (Auto) 22.4 % Monocytes (%) (Auto) 7.0 % Eosinophils (%) (Auto) 2.0 % Basophils (%) (Auto) 0.3 % Neutrophils # (Auto) 7.4 TH/MM3 Lymphocytes # (Auto) 2.4 TH/MM3 Monocytes # (Auto) 0.8 TH/MM3 Eosinophils # (Auto) 0.2 TH/MM3 Basophils # (Auto) 0.0 TH/MM3 CBC Comment DIFF FINAL Differential Comment Prothrombin Time 9.6 SEC Prothromb Time International Ratio 0.9 RATIO Activated Partial Thromboplast Time 22.9 SEC Blood Urea Nitrogen 25 MG/DL Creatinine 1.00 MG/DL Random Glucose 138 MG/DL Total Protein 7.1 GM/DL Albumin 3.5 GM/DL Calcium Level 8.9 MG/DL Magnesium Level 2.2 MG/DL Alkaline Phosphatase 90 U/L Aspartate Amino Transf (AST/SGOT) 18 U/L Alanine Aminotransferase (ALT/SGPT) 31 U/L Total Bilirubin 0.2 MG/DL Sodium Level 139 MEQ/L Potassium Level 3.8 MEQ/L Chloride Level 103 MEQ/L Carbon Dioxide Level 29.0 MEQ/L Anion Gap 7 MEQ/L Estimat Glomerular Filtration Rate 75 ML/MIN Lactic Acid Level 1.8 mmol/L Total Creatine Kinase 58 U/L Troponin I LESS THAN 0.02 NG/ML B-Type Natriuretic Peptide 22 PG/ML MDM Medical Decision Making Medical Screen Exam Complete: Yes Emergency Medical Condition: Yes Medical Record Reviewed: Yes (pmh confirmed) Interpretation(s) CBC & BMP Diagram 10/24/17 17:35 Total Protein 7.1, Albumin 3.5, Calcium Level 8.9, Magnesium Level 2.2, Alkaline Phosphatase 90, Aspartate Amino Transf (AST/SGOT) 18, Alanine Aminotransferase (ALT/SGPT) 31, Total Bilirubin 0.2 Last 24 hours Impressions Chest X-Ray 10/24/17 0000 Signed Impressions: Service Date/Time: Tuesday, October 24, 2017 16:37 - CONCLUSION: Bibasilar streakiness consistent with atelectasis and/or fibrotic scarring. Spencer Nur MD Differential Diagnosis copd, pneumonia, upper respiratory infection.... Narrative Course will check labs, flu, cxr and dose with duonebs and solumedrol and reevaluate on recheck only mild increase in aeration and wheezing now, will repeat a 4th neb and place in observation Physician Communication Physician Communication dr chen agrees to admit Diagnosis Primary Impression: COPD exacerbation Admitting Information Admitting Physician Requests: Observation Susana Bryan MD Oct 24, 2017 16:52
--- NOTE | 2017-10-24 17:10 | RADRPT ---
EXAM DATE/TIME: 10/24/2017 16:37 [facility] COMPARISON: No previous studies available for comparison. INDICATIONS : Cough, chest congestion for 2 weeks MEDICAL HISTORY : Myocardial infarction. SURGICAL HISTORY : Cardiac stent ENCOUNTER: Initial ACUITY: 2 weeks PAIN SCORE: 0/10 LOCATION: Bilateral chest FINDINGS: Bibasilar streakiness is noted consistent with atelectasis and/or fibrotic scarring. Pulmonary vascul ar pattern is normal. The heart is normal. Degenerative changes are noted throughout the thoracic spi ne. CONCLUSION: Bibasilar streakiness consistent with atelectasis and/or fibrotic scarring. Spencer Nur MD on October 24, 2017 at 17:07 Board Certified Radiologist. This report was verified electronically.
[2017-10-24 17:58] LABS: AUTOMATED NEUTROPHIL # 7.4 TH/MM3 (1.8-7.7); BASOPHIL % 0.3 % (0.0-2.0); EOSINOPHIL # 0.2 TH/MM3 (0-0.4); HEMATOCRIT 44.4 % (39.0-51.0); HEMOGLOBIN 14.7 GM/DL (13.0-17.0); LYMPH % 22.4 % (9.0-44.0); LYMPHOCYTE # 2.4 TH/MM3 (1.0-4.8); MEAN CELL VOLUME 92.1 FL (80.0-100.0); MEAN CORPUSCULAR HEMOGLOBIN 30.6 PG (27.0-34.0); MEAN CORPUSCULAR HGB CONC 33.2 % (32.0-36.0); MEAN PLATELET VOLUME 7.7 FL (7.0-11.0); MONOCYTE # 0.8 TH/MM3 (0-0.9); NEUT % 68.3 % (16.0-70.0); PLATELET COUNT 310 TH/MM3 (150-450); RED BLOOD COUNT 4.82 MIL/MM3 (4.50-5.90); RED CELL DISTRIBUTION WIDTH 13.3 % (11.6-17.2); WHITE BLOOD COUNT 10.8 TH/MM3 (4.0-11.0)
[2017-10-24 18:21] LABS: CHLORIDE 103 MEQ/L (98-107); SODIUM (NA) 139 MEQ/L (136-145)
[2017-10-24 18:25] LABS: ALBUMIN 3.5 GM/DL (3.4-5.0); BLOOD UREA NITROGEN 25 MG/DL (7-18); CALCIUM 8.9 MG/DL (8.5-10.1); GLUCOSE,RANDOM 138 MG/DL (74-106); MAGNESIUM 2.2 MG/DL (1.5-2.5)
[2017-10-24 18:27] LABS: INTERNATIONAL NORMALIZED RATIO 0.9 RATIO; PROTHROMBIN TIME - PATIENT 9.6 SEC (9.8-11.6)
[2017-10-24 18:28] LABS: ALT (GPT) 31 U/L (12-78); AST (GOT) 18 U/L (15-37); GLOMERULAR FILTRATION RATE 75 ML/MIN (>89)
[2017-10-24 18:30] LABS: TOTAL BILIRUBIN ADULT 0.2 MG/DL (0.2-1.0); TOTAL PROTEIN 7.1 GM/DL (6.4-8.2)
[2017-10-24 18:31] LABS: ALKALINE PHOSPHATASE 90 U/L (45-117)
[2017-10-24 18:33] LABS: TROPONIN I LESS THAN 0.02 NG/ML (0.02-0.05)
[2017-10-24] MEDS ORDERED: RESP: ALBUTEROL 2.5 MG/IPRATROPIUM 0.5 MG NEB (SCH) NEB ONE (19:00)
[2017-10-24] MEDS ORDERED: RESP: ALBUTEROL 2.5 MG/3 ML NEB (PRN) INH (19:30)
[2017-10-24] MEDS ORDERED: NITROGLYCERIN 0.4 MG SL 25 TABS/BTL SL PRN (19:45)
[2017-10-24] MEDS: SODIUM CHLOR 0.9% 1000 ML INJ 1,000 ML IV SCH (19:54)
[2017-10-24] MEDS ORDERED: RESP: ALBUTEROL 2.5 MG/IPRATROPIUM 0.5 MG NEB (SCH) INH (20:00)
[2017-10-24] MEDS: methylPREDNISolone SOD SUCC 125 MG/2 ML VIAL IV PUSH SCH (20:29)
[2017-10-24] MEDS: guaiFENesin/CODEINE SYRUP 200 MG/20 MG/10 ML CUP PO PRN (20:31)
[2017-10-24] MEDS: MAGNESIUM OXIDE 400 MG TAB PO SCH (22:24)
[2017-10-24] MEDS: GABAPENTIN 300 MG CAP PO SCH (22:24)
[2017-10-24] MEDS: EZETIMIBE 10 MG TAB PO SCH (22:25)
[2017-10-24] MEDS: ENOXAPARIN SODIUM 40 MG/0.4 ML SYRINGE SQ SCH (22:25)
[2017-10-24] MEDS: ACETAMINOPHEN/HYDROcodone 325 MG/7.5 MG TAB PO PRN (22:26)
--- NOTE | 2017-10-24 22:48 | MH ---
cc: ROCIO FULLER DATE OF ADMISSION: 10/24/2017 REASON FOR ADMISSION COPD exacerbation. HISTORY OF PRESENT ILLNESS Mr. Kirkpatrick is a 67-year-old gentleman with a history of COPD who approximately October 13 to of this year started with feeling of sore throat, congestion, and general malaise, body aches and finally went to [facility] where he was treated with Augmentin and prednisone. He was given Augmentin for 10 days and prednisone for 6 days. He says he was taking the medications but did not feel that he was improving and on October 22, he called his primary care doctor, Dr. Johns' office and he was then prescribed a Z-Nik. The patient states he started taking the medication, however, he felt no improvement with his symptoms. He had a persistent cough and shortness of breath with exertion. He says the cough is dry, not really that productive. He had tried using Mucinex for it as well. He did have a nebulizer at home that he was also using. He is not able to tell me when he took the prednisone for those six days if he had any significant change in his symptoms. He thinks not. He has had no fever or chills. He has had some people around him at [facility] that may have had something similar. It is not clear. His feels that he has had decreased appetite. He denies any actual chest pain. He just describes chest tightness and inability to take a deep breath. He does state that he has remained active during this entire time. He has not been lying around in bed or a recliner. PAST MEDICAL HISTORY: 1. Coronary artery disease and with an SC in the past. 2. He has had some stent. 3. History of hypertension. 4. Hyperlipidemia. 5. Reflux. 6. History of chronic back pain, especially thoracic which unfortunately mimics his chest pain. 7. He says he was diagnosed with COPD over ten years ago but he has never really had any breathing issues. PAST SURGICAL HISTORY: 1. Catheterization with stent placement. 2. Pain stimulator. 3. Cervical fusion. 4. Lumbar fusion. 5. Bilateral rotator cuff repair x2. ALLERGIES: HIVES FROM CONTRAST. LOPID SIMVASTATIN CRESTOR These cause muscle pain. MEDICATIONS: 1. Plavix. 2. Zetia. 3. Nitroglycerin. 4. Amlodipine. 5. Aspirin. 6. Gabapentin. 7. Magnesium. 8. Pantoprazole. 9. Vitamin B12. 10. Hydrocodone for his chronic back pain. HABITS He smoked approximately three packs a day for 30 years. He stopped in the late . He does not really consume alcohol. SOCIAL HISTORY He is currently retired. 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 REVIEW OF SYSTEMS: See HPI. He denies any actual chest pain or palpitations. No abdominal pain. He does have a little bit of a diminished appetite. He has no constipation or diarrhea, no problems urinating. He has been able to maintain himself hydrated. He denies any swelling in his legs. PHYSICAL EXAMINATION: On physical exam temperature is 98.5, pulse is 90, respirations 20, blood pressure is 113/76, pulse ox is 95% on room air. He is sitting up in the hospital cot. He is very pleasant. He is not wearing oxygen. He is speaking in full sentences. HEENT: He is normocephalic and traumatic. EOMs intact. He has a hyperemic oropharynx. NECK: Supple. No adenopathy. LUNGS: Diminished breath sounds with prolonged expiratory phase, but I really don't hear any wheezing. HEART: Regular. He is not tachycardiac. ABDOMEN: Globose. Good bowel sounds in all four quadrants. EXTREMITIES: No cyanosis or edema. He moves all extremities well. LABORATORY DATA: White count 10.8, hemoglobin 14.7, hematocrit 44.4, platelet count 310. Sodium 139, potassium 3.8, BUN of 25, creatinine of 1. Random glucose 138. Liver enzymes were normal. CK 58, troponin was less than 0.02. Lactic acid 1.8. BNP 2, PT 9.6 with an INR of 0.9 and PTT of 22.9. IMAGING STUDIES: Chest x-ray showed basilar streaking consistent with atelectasis and/or fibrotic scarring. ASSESSMENT/PLAN 67-year-old gentleman with history of COPD with 2-week history of general malaise, cough, congestion and shortness of breath. He currently has had persistent shortness of breath and cough. He has had a course of Augmentin and a partial course of azithromycin. It may be that he needs to have continued steroids at this point. I will admit him overnight, give him DuoNeb and some IV Solu-Medrol. Will finish off the course of azithromycin he has. Monitor his response to treatment over the next 24 hours. In terms of his coronary artery disease, will continue with his Plavix and aspirin. Hyperlipidemia. Continue with his statins. For his chronic pain, will cover him with some hydrocodone, particularly since he will be lying in bed and I suspect this will bother his back more. Further recommendations as the case develops. Rocio Fuller MD CSL/PAZ /8:09 PM /10:05 PM
[2017-10-25] VITALS (8 sets, daily range): BP systolic 121–148; BP diastolic 65–78; PULSE 96–117; RESP 20; TEMP 96.3–97.8; O2SAT 91–95
[2017-10-25] MEDS: methylPREDNISolone SOD SUCC 125 MG/2 ML VIAL IV PUSH SCH ×4 (02:26→21:42)
[2017-10-25] MEDS: guaiFENesin/CODEINE SYRUP 200 MG/20 MG/10 ML CUP PO PRN ×5 (04:30→22:01)
[2017-10-25] MEDS: ACETAMINOPHEN/HYDROcodone 325 MG/7.5 MG TAB PO PRN ×5 (04:31→22:01)
[2017-10-25] MEDS: RESP: ALBUTEROL 2.5 MG/IPRATROPIUM 0.5 MG NEB (SCH) INH ×4 (07:49→21:30)
[2017-10-25] MEDS: AZITHROMYCIN 250 MG TAB PO SCH (09:29)
[2017-10-25] MEDS: amLODIPine BESYLATE 5 MG TAB PO SCH (09:30)
[2017-10-25] MEDS: ASPIRIN EC 81 MG TABEC PO SCH (09:30)
[2017-10-25] MEDS: TRIAMTERENE/HCTZ 37.5 MG/25 MG TAB PO SCH (09:30)
[2017-10-25] MEDS: CLOPIDOGREL 75 MG TAB PO SCH (09:30)
[2017-10-25] MEDS: CYANOCOBALAMIN 1,000 MCG TAB PO SCH (09:30)
[2017-10-25] MEDS: PANTOPRAZOLE SOD 40 MG DELAYED RELEASE TAB PO SCH (09:30)
[2017-10-25] MEDS: GABAPENTIN 300 MG CAP PO SCH ×4 (09:30→21:42)
[2017-10-25] MEDS: MAGNESIUM OXIDE 400 MG TAB PO SCH ×2 (09:30→21:42)
[2017-10-25] MEDS: SODIUM CHLOR 0.9% 1000 ML INJ 1,000 ML IV SCH ×2 (09:32→22:01)
[2017-10-25] MEDS ORDERED: GABA600T PO (12:12)
--- NOTE | 2017-10-25 12:41 | HHI.PR ---
Subjective Remarks still complaining of sob and cough, chest feels tight, slightly better then last pm Objective Vitals Vital Signs Date Time Temp Pulse Resp B/P (MAP) Pulse Ox O2 Delivery O2 Flow Rate FiO2 10/25/17 07:51 92 Nasal Cannula 2.00 10/25/17 07:50 97.8 96 20 148/74 (98) 94 10/25/17 00:00 96.3 98 20 132/68 (89) 92 10/24/17 22:13 10/24/17 22:00 97.5 95 20 130/67 (88) 91 10/24/17 19:25 81 20 127/71 (89) 96 10/24/17 19:13 95 21 10/24/17 18:45 76 18 120/67 (84) 92 Room Air 10/24/17 18:23 98.5 90 20 113/76 (88) 95 Room Air 10/24/17 18:14 Room Air 10/24/17 18:14 20 95 Room Air 10/24/17 17:00 78 18 115/78 (90) 92 10/24/17 15:55 96 Room Air 10/24/17 15:42 98.0 83 16 136/75 (95) 95 Result Diagram: 10/24/17 1735 10/24/17 1735 Imaging Last Impressions Chest X-Ray 10/24/17 0000 Signed Impressions: Service Date/Time: Tuesday, October 24, 2017 16:37 - CONCLUSION: Bibasilar streakiness consistent with atelectasis and/or fibrotic scarring. Spencer Nur MD Objective Remarks sitting at edge of bed off oxygen (had just walked from restroom) lungs diminished through out no wheezing heart rrr abdomen globose no c/c/e A/P Problem List: (1) COPD exacerbation ICD Codes: J44.1 - Chronic obstructive pulmonary disease with (acute) exacerbation Status: Acute Plan: he denies any prior episodes, states diagnosed 10 yrs ago but has never been an issue, on iv solumedrol, duonebs, azithromycin will ask pulmonary to see him check ct scan (2) Hx of coronary artery disease ICD Codes: Z86.79 - Personal history of other diseases of the circulatory system Status: Chronic Plan: cont plavix asa (3) Hypertension ICD Codes: I10 - Hypertension Status: Chronic Plan: cont home meds (4) Thoracic spondylarthritis ICD Codes: M46.84 - Thoracic spondylarthritis Status: Chronic Plan: stable on current regimen (5) GERD (gastroesophageal reflux disease) ICD Codes: K21.9 - GERD (gastroesophageal reflux disease) Status: Chronic Plan: currently denies reflux, on protonix Rocio Brito MD Oct 25, 2017 12:41
--- NOTE | 2017-10-25 16:46 | RADRPT ---
EXAM DATE/TIME: 10/25/2017 15:32 [facility] COMPARISON: No previous studies available for comparison. INDICATIONS : Short of breath. RADIATION DOSE: 24.82 CTDIvol (mGy) ; Patient body habitus MEDICAL HISTORY : Chronic obstructive pulmonary disease. Gastroesophageal reflux disease. Hernia, hiatal. Myocardial in farction. Hypertension. SURGICAL HISTORY : Coronary artery stent. Fusion, cervical. ENCOUNTER: Initial ACUITY: 2 weeks PAIN SCALE: 5/10 LOCATION: Bilateral chest TECHNIQUE: Volumetric scanning of the chest was performed. Using automated exposure control and adjustment of t he mA and/or kV according to patient size, radiation dose was kept as low as reasonably achievable to obtain optimal diagnostic quality images. DICOM format image data is available electronically for r eview and comparison. Follow-up recommendations for detected pulmonary nodules are based at a minimum on nodule size and pa tient risk factors according to Fleischner Society Guidelines. FINDINGS: LUNGS: Bibasilar atelectasis and/or fibrotic scarring is noted. There is no consolidation or pneumothorax. No concerning pulmonary nodule is visualized. PLEURAE: There is no pleural thickening or pleural effusion. MEDIASTINUM: The heart and great vessels demonstrate no acute abnormality. There is no mediastinal or hilar lymph adenopathy. AXILLAE: Within normal limits. No lymphadenopathy. MUSCULOSKELETAL: Degenerative changes of the thoracic spine are noted. MISCELLANEOUS: The visualized upper abdominal organs demonstrate no acute abnormality. CONCLUSION: 1. Bibasilar atelectasis and/or fibrotic scarring. 2. Degenerative changes throughout the thoracic spine. Spencer Nur MD on October 25, 2017 at 16:41 Board Certified Radiologist. This report was verified electronically.
--- NOTE | 2017-10-25 20:35 | EKG ---
Date Performed: 10/24/2017 Time Performed: 17:01:55 PTAGE: 67 years EKG: Sinus rhythm WITH MARKED SINUS ARRHYTHMIA BORDERLINE ECG Since the prior tracing, there has been no significant c ramon PREVIOUS TRACING : 01/04/2017 18.06 DOCTOR: Regino Agudelo Interpretating Date/Time 10/25/2017 20:24:29
[2017-10-25] MEDS: EZETIMIBE 10 MG TAB PO SCH (21:00)
[2017-10-25] MEDS: ENOXAPARIN SODIUM 40 MG/0.4 ML SYRINGE SQ SCH (21:43)
[2017-10-26] VITALS: BP 128/65; PULSE 109; RESP 20; TEMP 97.6; O2SAT 96
[2017-10-26] MEDS: methylPREDNISolone SOD SUCC 125 MG/2 ML VIAL IV PUSH SCH ×2 (02:06→09:00)
--- NOTE | 2017-10-26 07:24 | MB ---
cc: SHANA SALDANA M.D. DATE OF CONSULTATION 10/25/2017 REASON FOR CONSULTATION COPD exacerbation HISTORY OF PRESENT ILLNESS Mr. Kirkpatrick is a 67-year-old male who tells me he has known COPD in the past, however, he did not require bronchodilator therapy. For the last two weeks or so, he has had increasing shortness of breath, cough and expectoration of whitish mucoid sputum. Denies a history of fever, chills or hemoptysis. He has no previous history of TB or industrial exposure. He is presently on oxygen therapy and bronchodilator therapy. His shortness of breath and congestion seems to be improving. The patient, as well, has a history of obstructive sleep apnea, however, had declined using therapy. PAST MEDICAL HISTORY 1. Obstructive sleep apnea and noncompliance with CPAP 2. Coronary artery disease 3. Hypertension 4. Hyperlipidemia 5. Acid-reflux disease 6. Chronic back pain 7. COPD 8. Previous coronary artery disease and cardiac stent placement. 9. Cervical fusion 10. Lumbar fusion 11. Rotator cuff surgery ALLERGIES LOPID, IV CONTRAST, SIMVASTATIN, CRESTOR. SOCIAL HISTORY He used to smoke, stopped in the 90's after a 30 pack year history. Does not drink alcohol. MEDICATIONS At home include: 1. Zetia 2. Plavix 3. Nitroglycerin 4. Amlodipine 5. Aspirin 6. Gabapentin 7. Magnesium 8. Pantoprazole 9. Vitamin tablet SYSTEMS REVIEW A 12-point review of systems as per HPI and past history, otherwise negative. PHYSICAL EXAM VITAL SIGNS: Temperature 98, pulse 90, respirations 18, blood pressure 130/80, oxygen saturation 95% on two liters oxygen nasal cannula. HEENT: Unremarkable. Eyes without icterus. NECK: Without adenopathy or thyroid enlargement. Central trachea. CHEST: Scattered rhonchi bilaterally. CARDIAC: PMI not appreciated. S1, S2 audible. No murmur, no rub. ABDOMEN: Lax, bowel sounds audible. EXTREMITIES: No clubbing, cyanosis or edema. IMPRESSION 1. COPD exacerbation 2. Obstructive sleep apnea, noncompliant. 3. Coronary artery disease post-stent placement. 4. Hyperlipidemia receiving medication 5. Hypertension PLAN The patient will continue oxygen therapy, bronchodilator therapy, antibiotic therapy. We will obtain baseline pulmonary function. Meanwhile post discharge, the patient should be encouraged to proceed with first a sleep evaluation and hopefully will be able to comply with treatment. I do thank you for asking me to partake in Mr. Kirkpatrick's care. Shana Saldana MD WWW/HIMANSHU /3:16 PM /9:29 AM
[2017-10-26 08:00] VITALS: BP 146/73; PULSE 107; RESP 17; TEMP 98; O2SAT 96
[2017-10-26] MEDS: RESP: ALBUTEROL 2.5 MG/IPRATROPIUM 0.5 MG NEB (SCH) INH ×2 (08:05→11:30)
[2017-10-26 08:08] VITALS: O2SAT 93
[2017-10-26] MEDS: AZITHROMYCIN 250 MG TAB PO SCH (09:01)
[2017-10-26] MEDS: PANTOPRAZOLE SOD 40 MG DELAYED RELEASE TAB PO SCH (09:01)
[2017-10-26] MEDS: CYANOCOBALAMIN 1,000 MCG TAB PO SCH (09:01)
[2017-10-26] MEDS: ASPIRIN EC 81 MG TABEC PO SCH (09:01)
[2017-10-26] MEDS: GABAPENTIN 300 MG CAP PO SCH ×2 (09:02→14:09)
[2017-10-26] MEDS: TRIAMTERENE/HCTZ 37.5 MG/25 MG TAB PO SCH (09:02)
[2017-10-26] MEDS: MAGNESIUM OXIDE 400 MG TAB PO SCH (09:02)
[2017-10-26] MEDS: amLODIPine BESYLATE 5 MG TAB PO SCH (09:02)
[2017-10-26] MEDS: ACETAMINOPHEN/HYDROcodone 325 MG/7.5 MG TAB PO PRN ×2 (09:03→14:09)
[2017-10-26] MEDS: CLOPIDOGREL 75 MG TAB PO SCH (09:03)
[2017-10-26] MEDS: SODIUM CHLOR 0.9% 1000 ML INJ 1,000 ML IV SCH (12:03)
--- NOTE | 2017-10-26 13:18 | HHI.PR ---
Subjective Remarks Feels better, less sob ,less "tight" nebulizers are making him jittery, feels ready to go home. Objective Vitals Vital Signs Date Time Temp Pulse Resp B/P (MAP) Pulse Ox O2 Delivery O2 Flow Rate FiO2 10/26/17 10:03 18 10/26/17 08:08 93 Nasal Cannula 2.00 10/26/17 08:00 98.0 107 17 146/73 (97) 96 10/26/17 00:00 97.6 109 20 128/65 (86) 96 10/25/17 21:35 93 Nasal Cannula 2.00 10/25/17 20:00 97.5 102 20 148/67 (94) 93 10/25/17 15:57 94 Nasal Cannula 21 10/25/17 15:50 96.6 106 20 121/65 (83) 91 Result Diagram: 10/24/17 1735 10/24/17 1735 Imaging Last Impressions Chest CT 10/25/17 0000 Signed Impressions: Service Date/Time: October 15:32 - CONCLUSION: 1. Bibasilar atelectasis and/or fibrotic scarring. 2. Degenerative changes throughout the thoracic spine. Spencer Nur MD Chest X-Ray 10/24/17 0000 Signed Impressions: Service Date/Time: Tuesday, October 24, 2017 16:37 - CONCLUSION: Bibasilar streakiness consistent with atelectasis and/or fibrotic scarring. Spencer Nur MD Last Impressions Chest X-Ray 10/24/17 0000 Signed Impressions: Service Date/Time: Tuesday, October 24, 2017 16:37 - CONCLUSION: Bibasilar streakiness consistent with atelectasis and/or fibrotic scarring. Spencer Nur MD Objective Remarks sitting in chair wearin )2, speaks in full sentences, voice less "gravelly" lung cta kelley, better air exchange, no wheezing heart slightly tachy ext no c/c/e A/P Problem List: (1) COPD exacerbation ICD Codes: J44.1 - Chronic obstructive pulmonary disease with (acute) exacerbation Status: Acute Plan: seen by pulmonary yesterday pfts ordered ct scan showed atelectasis or fibrotic scarring he was evaluated for terence but states cannot wear mask nebulizer making him jittery, will decrease frequency, do walk test and d/c on oral prednisone (2) Hx of coronary artery disease ICD Codes: Z86.79 - Personal history of other diseases of the circulatory system Status: Chronic Plan: cont plavix asa (3) Hypertension ICD Codes: I10 - Hypertension Status: Chronic Plan: cont home meds (4) Thoracic spondylarthritis ICD Codes: M46.84 - Thoracic spondylarthritis Status: Chronic Plan: stable on current regimen (5) GERD (gastroesophageal reflux disease) ICD Codes: K21.9 - GERD (gastroesophageal reflux disease) Status: Chronic Plan: currently denies reflux, on protonix Discharge Planning d/c home today after walk test with f/u with pcp and pulmonary Rocio Brito MD Oct 26, 2017 13:18
[2017-10-26] MEDS ORDERED: predniSONE 20 MG TAB PO SCH (14:00)
[2017-10-26 15:09] VITALS: RESP 18
[2017-10-26] MEDS ORDERED: Albuterol Neb NEB (15:50)
[2017-10-26] MEDS ORDERED: Albuterol Neb INH (15:50)
[2017-10-26] MEDS ORDERED: PRED20 PO (15:50)
[2017-10-26] MEDS ORDERED: RESP: ALBUTEROL 2.5 MG/3 ML NEB (SCH) NEB (16:00)
[2017-10-26] MEDS ORDERED: RESP: IPRATROPIUM 0.5 MG/2.5 ML NEB NEB SCH (16:00)
== END 2017-10-26 16:48 | disposition home or self-care (01) ==
LOC: PHED 15:26 → PHEDA 19:10 → PH3A 21:57
PROVIDERS: ADMIT Legal Medicine; ATTEND Legal Medicine
DX: J44.1 Chronic obstructive pulmonary disease with (acute) exacerbation (principal); R63.0 Anorexia; I25.10 Atherosclerotic heart disease of native coronary artery without angina pectoris; E78.00 Pure hypercholesterolemia, unspecified; I49.9 Cardiac arrhythmia, unspecified; I25.2 Old myocardial infarction; I10 Essential (primary) hypertension; G47.33 Obstructive sleep apnea (adult) (pediatric); K21.9 Gastro-esophageal reflux disease without esophagitis; M54.9 Dorsalgia, unspecified; G89.29 Other chronic pain; M46.84 Other specified inflammatory spondylopathies, thoracic region; M19.90 Unspecified osteoarthritis, unspecified site; Z79.899 Other long term (current) drug therapy; Z87.891 Personal history of nicotine dependence; Z79.82 Long term (current) use of aspirin; Z79.02 Long term (current) use of antithrombotics/antiplatelets; Z86.73 Personal history of transient ischemic attack (TIA), and cerebral infarction without residual deficits; Z91.19 Patient's noncompliance with other medical treatment and regimen; Z95.5 Presence of coronary angioplasty implant and graft; Z98.1 Arthrodesis status
CPT/HCPCS: 71046; 71250; 80053; 82550; 83605; 83735; 83880; 84484; 85025; 85610; 85730; 87040; 87804; 93005; 94060; 94618; 94640; 94664; 96361; 96372; 96374; 96376; 99285; G0378; J1650; J2930; J7030; J7512; J7613; J7644